=== PATIENT | male | born 1945 | race Caucasian/White ===

== ENCOUNTER 2018-03-10 11:24 | Emergency (ER) | payer OTHER ==
[2018-03-10] MEDS ORDERED: NS 1,000 ML IV ONE (11:32)
--- NOTE | 2018-03-10 11:32 | EDPHY ---
HPI/HX/ROS/PE/MDM Narrative: CHIEF COMPLAINT: Near syncope, dizzy HPI: The patient is a 72 y/o male with a history of diabetes arriving via EMS complaining of multiple falls for the past 2 days. Yesterday he had an episode of dizziness and weakness and suffered multiple skin tears. Today he had a near syncopal episode but was able to catch himself. He was on a walk, when his " feet didn't work" and he became dizzy. Due to this dizziness he thought he was going to fall. He became concerned about the dizziness and called 911. While en route to the emergency department he had normal vital signs including a normal BGL of 146. Denies headache, chest pain, shortness of breath, abdominal pain, numbness, paresthesias, fever. He has also recently transitioned from Type 2 Diabetes to Type 1 Diabetes. He started giving himself insulin injections 2 months ago. REVIEW OF SYSTEMS: Aside from elements discussed in the HPI, a comprehensive 10-point review of systems was reviewed and is negative. PMH: Diabetes Mellitus, blind in left eye SOCIAL HISTORY: Lives in [place], , retired PHYSICAL EXAM: General: Patient is alert, in no acute distress. ENT: Eyes are normal to inspection. ENT inspection normal. Neck: Normal inspection. Full range of motion. Respiratory: No respiratory distress. Breath sounds normal bilaterally. Cardiovascular: Regular rate and rhythm. Strong peripheral pulses. Normal cap refill. Abdomen: The abdomen is nontender to palpation. There are no peritoneal signs. There are normal bowel sounds. Back: Normal to inspection. No tenderness to palpation. Skin: Multiple skin tears on extremities. Normal color. No rash. Warm and dry. Extremities: Normal appearance. Full range of motion. Neuro: Oriented x3. Normal motor function. Normal sensory function. ED Course: 1137: EKG was ordered and interpreted by myself. Please see [employer] system for official reading. 1245: Reassessed patient and discussed laboratory and imaging findings. He is aware of an elevated calcium level and states that a physician at [facility] is following his calcium. I have ordered additional calcium labs which he will need to follow up with his PCP for. I have offered him admission which he has politely declined. I spoke with case management in regards to finding transport for this patient to return home. 1316: I spoke with case management who reports that this patient is homeless and has been evicted from [facility]. She will try to set up [facility] follow up for the patient. MDM: This patient presents with frequent falls that he is adamant represent dizziness r weakness rather than true syncopal events. He is at high risk for complication given co-morbidities and has a rising abnormal calcium level of unclear etiology. I recommended admission but he declines. Case management met with patient to help with resources. Patient told he would be welcome to return and will clearly need close outpatient follow-up at a minimum. - Data Points Imaging Results: Imaging Impressions Chest X-Ray 03/10/18 11:32 Impression: No acute pulmonary disease. Imaging: I viewed and interpreted images myself Laboratory Results: Laboratory Results 03/10/18 11:35 03/10/18 11:35 03/10/18 03/10/18 03/10/18 13:13 11:35 11:35 WBC RBC Hgb Hct MCV MCH MCHC RDW Plt Count MPV Neut % (Auto) Lymph % (Auto) Ste[place] % (Auto) Eos % (Auto) Baso % (Auto) Nucleat RBC Rel Count Absolute Neuts (auto) Absolute Lymphs (auto) Absolute Monos (auto) Absolute Eos (auto) Absolute Basos (auto) Absolute Nucleated RBC Immature Gran % Immature Gran # Sodium 143 mEq/L mEq/L (135-145) Potassium 4.5 mEq/L mEq/L (3.3-5.0) Chloride 109 mEq/L mEq/L (97-110) Carbon Dioxide 18 mEq/l L mEq/l (22-31) Anion Gap 16 mEq/L mEq/L (8-16) BUN 24 mg/dL H mg/dL (7-23) Creatinine 0.7 mg/dL mg/dL (0.7-1.3) Estimated GFR > 60 Glucose 152 mg/dL H mg/dL (70-100) Calcium 11.4 mg/dL H mg/dL (8.5-10.4) Ionized Calcium 1.33 MMOL/L H MMOL/L (1.12-1.30) Phosphorus 2.7 mg/dL mg/dL (2.5-4.5) Troponin I < 0.012 ng/mL ng/mL (0.000-0.034) PTH Intact 79.7 pg/mL H pg/mL (10.8-79.4) 03/10/18 11:35 WBC 9.16 10^3/uL 10^3/uL (3.80-9.50) RBC 4.94 10^6/uL 10^6/uL (4.40-6.38) Hgb 15.7 g/dL g/dL (13.7-17.5) Hct 44.1 % % (40.0-51.0) MCV 89.3 fL fL (81.5-99.8) MCH 31.8 pg pg (27.9-34.1) MCHC 35.6 g/dL g/dL (32.4-36.7) RDW 12.3 % % (11.5-15.2) Plt Count 171 10^3/uL 10^3/uL (150-400) MPV 11.5 fL fL (8.7-11.7) Neut % (Auto) 75.6 % H % (39.3-74.2) Lymph % (Auto) 16.3 % % (15.0-45.0) Stearns % (Auto) 7.2 % % (4.5-13.0) Eos % (Auto) 0.1 % L % (0.6-7.6) Baso % (Auto) 0.4 % % (0.3-1.7) Nucleat RBC Rel Count 0.0 % % (0.0-0.2) Absolute Neuts (auto) 6.92 10^3/uL H 10^3/uL (1.70-6.50) Absolute Lymphs (auto) 1.49 10^3/uL 10^3/uL (1.00-3.00) Absolute Monos (auto) 0.66 10^3/uL 10^3/uL (0.30-0.80) Absolute Eos (auto) 0.01 10^3/uL L 10^3/uL (0.03-0.40) Absolute Basos (auto) 0.04 10^3/uL 10^3/uL (0.02-0.10) Absolute Nucleated RBC 0.00 10^3/uL 10^3/uL (0-0.01) Immature Gran % 0.4 % % (0.0-1.1) Immature Gran # 0.04 10^3/uL 10^3/uL (0.00-0.10) Sodium Potassium Chloride Carbon Dioxide Anion Gap BUN Creatinine Estimated GFR Glucose Calcium Ionized Calcium Phosphorus Troponin I PTH Intact Medications Given: Discontinued Medications Sodium Chloride (Ns) 1,000 mls @ 0 mls/hr IV EDNOW ONE; Wide Open PRN Reason: Protocol Stop: 03/10/18 11:33 Last Admin: 03/10/18 11:48 Dose: 1,000 mls General Time Seen by Provider: 03/10/18 11:28 Initial Vital Signs: Initial Vital Signs Temperature (C) 36.7 C 03/10/18 11:24 Heart Rate 95 03/10/18 11:24 Respiratory Rate 20 03/10/18 11:24 Blood Pressure 125/88 H 03/10/18 11:24 O2 Sat (%) 96 03/10/18 11:24 O2 Delivery Mode Room Air Allergies/Adverse Reactions: No Known Allergies Allergy (Unverified 03/11/18 00:23) Home Medications: Medication Instructions Recorded Benazepril HCl 5 mg PO DAILY 03/11/18 Donepezil HCl 10 mg PO HS 03/11/18 Glimepiride [Amaryl 2 MG (*)] 2 mg PO DAILY 03/11/18 Lisinopril [Zestril 2.5 mg (*)] 2.5 mg PO DAILY 03/11/18 Metformin HCl [Metformin 1000 mg] 1,000 mg PO BIDMEAL 03/11/18 Pravastatin Sodium [Pravachol] 10 mg PO HS 03/11/18 Departure - Departure Disposition: Home, Routine, Self-Care Clinical Impression: Dizzy, Near syncope, Hypercalcemia Condition: Good Instructions: Near Syncope (ED), Lightheadedness (ED), Dizziness (ED), Hypercalcemia (ED) Additional Instructions: We have ordered additional calcium labs in regards to your hypercalcemia. You will need to follow up with your primary care provider regarding these labs. Follow up with your primary care provider within 72 hours without fail. Return to the emergency department immediately for headache, numbness, weakness , neck pain, inability to tolerate fluids by mouth or other worsening of condition. Referrals: Xiao Paniagua MD [Medical Doctor] - As per Instructions [facility],. [Clinic] - As per Instructions Report Scribed for: Chencho Carlos Report Scribed by: Louise Huitron Date of Report: 03/10/18 Time of Report: 12:01 Physician Review and Approval Statement: Portions of this note were transcribed by an ED scribe. I personally performed the history, physical exam, and medical decision making; and confirm the accuracy of the information in the transcribed note.
--- NOTE | 2018-03-10 11:39 | CPEKG ---
Heart Rate: 95 RR Interval: 632 P-R Interval: 156 QRSD Interval: 92 QT Interval: 348 QTC Interval: 438 P [place]: 63 QRS [place]: 79 T Wave [place]: 53 EKG Severity - NORMAL ECG - EKG Impression: SINUS RHYTHM Electronically Signed By: Van Mcgee 11-Mar-2018 07:22:47
[2018-03-10 11:46] LABS: PLATELET COUNT 171 10^3/uL (150-400)
[2018-03-10 12:29] VITALS: BP 125/87
--- NOTE | 2018-03-10 19:04 | ASDISCHSUM ---
Discharge Information Plan Status:Home with No Needs Medically Cleared to Leave: Discharge Date:03/10/2018 01:47 PM CM D/C Disposition:Home, Routine, Self-Care ADT D/C Disposition:Home, Routine, Self-Care Projected Discharge Date:03/10/2018 01:47 PM Transportation at D/C:None or Unknown Discharge Delay Reason: Follow-Up Date:03/10/2018 01:47 PM Discharge Slot: Final Diagnosis: Placement Information Patient Contact Information Contact Name:DEION Relationship:Licha Address: Work Phone: City: [facility] Phone: State/Zip Code: Email: Financial Information Financial Class:Medicare Primary Plan Desc:MEDICARE OUTPATIENT Primary Plan Number:[id number] Secondary Plan Desc: Secondary Plan Number: Assessment Information [facility] CM Progress Note CM Note CM Note Notes: Pt presented to the ED for near-syncope. Requested to assist patient w/returning home. Spoke with patient and he states he currently doesn't have a home but was staying with a lady friend who lives at [place] but it was only for one night and can't return there to stay overnight. Pt states he was evicted from [facility] but was unable to give specific/clear reason why but reports "they are all heathens over there." When asked where pt was planning on going after the ED, pt replied "I hadn't given it much thought." Pt was offered admission to the hospital for further workup but declined. Pt states he might have another friend who he could stay with but "rather not bother them." Pt informed about the Coordinated Entry process. Pt used to be seen by Dr. Paniagua at [facility] ([phone]). Offered to assist pt with getting a follow up appointment. Pt's last visit with Dr Paniagua was in 2014. This CM called and schedule pt an appt for Tuesday but unfortunately the patient left the ED while CM was on the phone. Pt told ED RN he "wanted to go eat and we couldn't make him stay." This CM was unable to communicate the appt day and time so it was canceled ANDRA was also unable to provide CE and other resource lists before pt left. CM available for further assistance. Date Signed: 03/10/2018 07:03 PM Electronically Signed By:Su Landeros RN Intervention Information
== END 2018-03-10 13:47 | disposition home or self-care (01) ==
LOC: EDUNIT#
DX: R42 Dizziness and giddiness (principal); R55 Syncope and collapse; E11.65 Type 2 diabetes mellitus with hyperglycemia; E86.9 Volume depletion, unspecified; Z79.84 Long term (current) use of oral hypoglycemic drugs

== ENCOUNTER 2018-03-11 00:19 | Inpatient (IN) | payer OTHER ==
[2018-03-11] MEDS ORDERED: NS 1,000 ML IV ONE ×2 (00:32→01:24)
--- NOTE | 2018-03-11 00:37 | CPEKG ---
Heart Rate: 95 RR Interval: 632 P-R Interval: 152 QRSD Interval: 96 QT Interval: 348 QTC Interval: 438 P [place]: 56 QRS [place]: 79 T Wave [place]: 46 EKG Severity - NORMAL ECG - EKG Impression: SINUS RHYTHM Electronically Signed By: Van Mcgee 11-Mar-2018 07:22:47
--- NOTE | 2018-03-11 00:38 | EDPHY ---
H & P Stated Complaint: diabetic, high BGL Time Seen by Provider: 03/11/18 00:33 HPI/ROS: HPI CHIEF COMPLAINT: High blood sugar, confused, walking around outside making disturbance HISTORY OF PRESENT ILLNESS: This patient is a 72-year-old male, presents emergency room by EMS after police made contact with him as he was walking around a neighborhood in [facility] making a disturbance and yelling. The Asked EMS to come and evaluate him and they found him to have a high blood sugar. They brought him here to the emergency room. The patient upon arrival also thinks that it is 2014. He does note that he is [facility]. He states that he takes insulin but he is unsure exactly how much she takes and does not remember the medication name. He reports to me that he has been in [place] for week he states that he lives in [place] and he is visiting a friend at [facility]. He reports that he is due to fly back to [place]. However he does not have a plane take it. On further examination review with him he seems to be confused and have some, cognitive decline versus underlying dementia which she denies. It is unclear to me why he is walking around at 1 o'clock in the morning around [place] causing disturbance with no place to live. He states that his son brought him here to [place] and his son is already back in [place]. Of note this patient was also seen here earlier in the day and left the ER. 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 Smokes tobacco daily. Family History: Noncontributory ROS REVIEW OF SYSTEMS: A comprehensive 10 point review of systems is otherwise negative aside from elements mentioned in the history of present illness. Exam Constitutional confused, triage nursing summary reviewed, vital signs reviewed , awake/alert. Eyes right eye appears to be prostatic with yellow purulent discharge, left eye intact HENT normal inspection, atraumatic, moist mucus membranes, no epistaxis, neck supple/ no meningismus, no raccoon eyes. Respiratory clear to auscultation bilaterally, normal breath sounds, no respiratory distress, no wheezing. Cardiovascular rate normal, regular rhythm, no murmur, no edema, distal pulses normal. Gastrointestinal soft, non-tender, no rebound, no guarding, normal bowel sounds, no distension, no pulsatile mass. Genitourinary no CVA tenderness. Musculoskeletal no midline vertebral tenderness, full range of motion, no calf swelling, no tenderness of extremities, no meningismus, good pulses, neurovascularly intact. Skin pink, warm, & dry, no rash, skin atraumatic. Neurologic alert or x2, moves all 4 extremities equally, motor intact, sensory intact, CN II-XII intact, normal cerebellar, normal vision, normal speech. Psychiatric normal mood/affect. Heme/Lymph/Immune no lymphadenopathy. Differential Diagnosis: Includes but is not limited to in a particular order hyperglycemia, electrolyte disturbance, dehydration, DKA, infection, dementia, sundowning, delirium, encephalopathy Medical Decision Making: Plan for this patient IV establishment blood draw, EKG , troponin, chest x-ray, CT scan head without contrast for confusion, rule out DKA, gentle IV fluids. Re-evaluation: I have great concern about this patient's safety 72 years old wandering around night in [place] it appears to have some kind of cognitive issue. He states he is from [place]. Patient will most likely need to be admitted with a case management consult for the patient's safety. EKG interpretation by me on record in [employer] system. Impression time of EKG 0036, this is sinus rhythm rate of [address] scan head without contrast negative for acute bleed or stroke. Patient's blood work reviewed. No evidence of DKA. He is hyperglycemia. He will be hydrated vigorously with IV fluids. Additionally patient need to be admitted to the hospital for case management to see and work with for his safety and disposition. Reason for admission, he is homeless, diabetic, does not know his insulin dose, does not know what insulin he takes comma is hyperglycemic, dehydrated, possible underlying dementia versus cognitive decline. Not safe for discharge. 0125: Patient resting comfortably no acute distress. Spoke with the hospitalist service they agree to admit. Case management to see. Reason for admission dehydration and hyperglycemia Source: Patient, EMS - Personal History Current Tetanus/Diphtheria Vaccine: Yes Current Tetanus Diphtheria and Acellular Pertussis (TDAP): Yes - Medical/Surgical History Hx Asthma: No Hx Chronic Respiratory Disease: No Hx Diabetes: Yes Hx Cardiac Disease: No Hx Renal Disease: No Hx Cirrhosis: No Hx Alcoholism: No Hx HIV/AIDS: No Hx Splenectomy or Spleen Trauma: No Other PMH: DM, hyperlipidemia/ blind in l eye,s/p fall - Social History Smoking Status: Current every day smoker Constitutional: Initial Vital Signs Temperature (C) 36.4 C 03/11/18 00:23 Heart Rate 108 H 03/11/18 00:23 Respiratory Rate 18 03/11/18 00:23 Blood Pressure 149/75 H 03/11/18 00:23 O2 Sat (%) 96 03/11/18 00:23 O2 Delivery Mode Room Air Allergies/Adverse Reactions: No Known Allergies Allergy (Unverified 03/11/18 00:23) Home Medications: Medication Instructions Recorded Benazepril HCl 5 mg PO DAILY 03/11/18 Donepezil HCl 10 mg PO 03/11/18 Glimepiride [Amaryl 2 MG (*)] 2 mg PO DAILY 03/11/18 Lisinopril [Zestril 2.5 mg (*)] 2.5 mg PO DAILY 03/11/18 Metformin HCl [Metformin 1000 mg] 1,000 mg PO BIDMEAL 03/11/18 Pravastatin Sodium [Pravachol] 10 mg PO 03/11/18 Medical Decision Making - Data Points Laboratory Results: Laboratory Results 03/11/18 00:15 03/11/18 00:15 Medications Given: Donepezil HCl (Aricept) 10 mg PO [facility] Stop: 09/07/18 20:59 Last Admin: 03/11/18 20:55 Dose: 10 mg Enoxaparin Sodium (Lovenox) 40 mg SC DAILY [facility] Stop: 09/07/18 08:59 Last Admin: 03/11/18 08:14 Dose: 40 mg Sodium Chloride (Ns) 1,000 mls @ 100 mls/hr IV CONT [facility] Stop: 03/12/18 01:44 Last Admin: 03/11/18 15:49 Dose: 1,000 mls Insulin Human Lispro (Humalog Lispro) 0 unit SC TIDMEAL [facility] PRN Reason: Protocol Stop: 09/07/18 07:59 Last Admin: 03/11/18 18:09 Dose: 6 unit Metformin HCl (Glucophage) 1,000 mg PO BIDMEAL [facility] Stop: 09/07/18 17:59 Last Admin: 03/11/18 18:08 Dose: 1,000 mg Pravastatin Sodium (Pravachol) 10 mg PO HS [facility] Stop: 09/07/18 20:59 Last Admin: 03/11/18 20:55 Dose: 10 mg Discontinued Medications Sodium Chloride (Ns) 1,000 mls @ 0 mls/hr IV EDNOW ONE; Wide Open PRN Reason: Protocol Stop: 03/11/18 00:33 Last Admin: 03/11/18 00:36 Dose: 1,000 mls Sodium Chloride (Ns) 1,000 mls @ 0 mls/hr IV ONCE ONE PRN Reason: Wide Open Stop: 03/11/18 01:25 Last Admin: 03/11/18 01:29 Dose: 1,000 mls Insulin Human Regular (Humulin R) 10 unit SC EDNOW ONE Stop: 03/11/18 01:24 Last Admin: 03/11/18 01:27 Dose: 10 units Pneumococcal 13-Valent Conj Vacc (Prevnar 13 Syringe) 0.5 ml IM .ONCE ONE Stop: 03/11/18 12:23 Last Admin: 03/11/18 12:34 Dose: 0.5 ml Departure - Departure Disposition: [facility] Acute Clinical Impression: Hyperglycemia, Dehydration Condition: Fair
[2018-03-11 00:52] LABS: PLATELET COUNT 175 10^3/uL (150-400)
[2018-03-11 01:12] LABS: INR 1.01 (0.83-1.16); PROTIME(PATIENT) 13.5 SEC (12.0-15.0)
[2018-03-11] MEDS ORDERED: INSULIN REGULAR HUMAN 100 UNIT/ML UNIT SC ONE (01:23)
[2018-03-11] MEDS ORDERED: ONDANSETRON DISINTEGRATING 4 MG TAB PO PRN (01:24)
[2018-03-11] MEDS ORDERED: ACETAMINOPHEN 325 MG TAB PO PRN (01:24)
[2018-03-11] MEDS ORDERED: ONDANSETRON 4 MG/2 ML VIAL IVP PRN (01:24)
[2018-03-11] MEDS ORDERED: D50W 25 GM/50 ML VIAL IVP PRN (02:51)
--- NOTE | 2018-03-11 03:09 | PDGENHP ---
History and Physical - Chief Complaint AMS - History of Present Illness 72 yo M w/ DM presents via AMS for odd behavior. Patient was reported to police by onlookers as he was reportedly acting oddly. Police asked for EMS to evaluate and they brought him to ED for hyperglycemia (300's). He tells me he was looking for his friend's house when he dropped his flashlight in [place]. He visited the ED earlier today complaining of near syncope and was discharged home. He is only A&Ox2 on my evaluation but appears fairly appropriate. He denies any ongoing symptoms. History Information - Allergies/Home Medication List Allergies/Adverse Reactions: No Known Allergies Allergy (Unverified 03/11/18 00:23) Home Medications: Metformin HCl 03/11/15 [Last Taken Unknown] Zocor 03/11/15 [Last Taken Unknown] BENAZEPRIL HCL 04/12/15 [Last Taken Unknown] Glimepiride 04/12/15 [Last Taken Unknown] Pravastatin Sodium 04/12/15 [Last Taken Unknown] Insulin Aspart 03/10/18 [Last Taken Unknown] I have personally reviewed and updated: family history, medical history - Past Medical History diabetes type 2 - Surgical History Additional surgical history: Denies - Family History Additional family history: Denies - Social History Smoking Status: Current every day smoker Review of Systems Review of Systems: ROS: 10pt was reviewed & negative except for what was stated in HPI & below Physical Exam Physical Exam: Temp Pulse Resp BP Pulse Ox 35.9 C L 77 16 119/72 96 03/11/18 02:36 03/11/18 02:36 03/11/18 02:36 03/11/18 02:36 03/11/18 02:36 Constitutional: no apparent distress, not in pain Eyes: anicteric sclera, other (R eye cloudy) Ears, Nose, Mouth, Throat: moist mucous membranes, no oral mucosal ulcers Cardiovascular: regular rate and rhythym, systolic murmur Respiratory: no respiratory distress, no rales or rhonchi Gastrointestinal: normoactive bowel sounds, soft, non-tender abdomen Skin: warm, normal color Musculoskeletal: full muscle strength, no muscle tenderness Neurologic: sensation intact bilaterally, other (A&Ox2), No weakness, No facial droop Psychiatric: interacting appropriately, not anxious Lab Data & Imaging Review 03/11/18 00:15 03/11/18 00:15 WBC 10.99 10^3/uL (3.80-9.50) H 03/11/18 00:15 RBC 4.95 10^6/uL (4.40-6.38) 03/11/18 00:15 Hgb 15.5 g/dL (13.7-17.5) 03/11/18 00:15 Hct 45.2 % (40.0-51.0) 03/11/18 00:15 MCV 91.3 fL (81.5-99.8) 03/11/18 00:15 MCH 31.3 pg (27.9-34.1) 03/11/18 00:15 MCHC 34.3 g/dL (32.4-36.7) 03/11/18 00:15 RDW 12.5 % (11.5-15.2) 03/11/18 00:15 Plt Count 175 10^3/uL (150-400) 03/11/18 00:15 MPV 12.0 fL (8.7-11.7) H 03/11/18 00:15 Neut % (Auto) 76.8 % (39.3-74.2) H 03/11/18 00:15 Lymph % (Auto) 13.6 % (15.0-45.0) L 03/11/18 00:15 [place] % (Auto) 8.5 % (4.5-13.0) 03/11/18 00:15 Eos % (Auto) 0.1 % (0.6-7.6) L 03/11/18 00:15 Baso % (Auto) 0.5 % (0.3-1.7) 03/11/18 00:15 Nucleat RBC Rel Count 0.0 % (0.0-0.2) 03/11/18 00:15 Absolute Neuts (auto) 8.45 10^3/uL (1.70-6.50) H 03/11/18 00:15 Absolute Lymphs (auto) 1.50 10^3/uL (1.00-3.00) 03/11/18 00:15 Absolute Monos (auto) 0.93 10^3/uL (0.30-0.80) H 03/11/18 00:15 Absolute Eos (auto) 0.01 10^3/uL (0.03-0.40) L 03/11/18 00:15 Absolute Basos (auto) 0.05 10^3/uL (0.02-0.10) 03/11/18 00:15 Absolute Nucleated RBC 0.00 10^3/uL (0-0.01) 03/11/18 00:15 Immature Gran % 0.5 % (0.0-1.1) 03/11/18 00:15 Immature Gran # 0.05 10^3/uL (0.00-0.10) 03/11/18 00:15 PT 13.5 SEC (12.0-15.0) 03/11/18 00:15 INR 1.01 (0.83-1.16) 03/11/18 00:15 APTT 27.2 SEC (23.0-38.0) 03/11/18 00:15 Sodium 142 mEq/L (135-145) 03/11/18 00:15 Potassium 4.8 mEq/L (3.3-5.0) 03/11/18 00:15 Chloride 103 mEq/L (97-110) 03/11/18 00:15 Carbon Dioxide 22 mEq/l (22-31) 03/11/18 00:15 Anion Gap 17 mEq/L (8-16) H 03/11/18 00:15 BUN 27 mg/dL (7-23) H 03/11/18 00:15 Creatinine 1.0 mg/dL (0.7-1.3) 03/11/18 00:15 Estimated GFR > 60 03/11/18 00:15 Glucose 363 mg/dL (70-100) H 03/11/18 00:15 Calcium 11.6 mg/dL (8.5-10.4) H 03/11/18 00:15 Phosphorus 3.6 mg/dL (2.5-4.5) 03/11/18 00:15 Total Bilirubin 2.6 mg/dL (0.1-1.4) H 03/11/18 00:15 Conjugated Bilirubin 0.7 mg/dL (0.0-0.5) H 03/11/18 00:15 Unconjugated Bilirubin 1.9 mg/dL (0.0-1.1) H 03/11/18 00:15 AST 43 IU/L (17-59) 03/11/18 00:15 ALT 37 IU/L (21-72) 03/11/18 00:15 Alkaline Phosphatase 85 IU/L (38-126) 03/11/18 00:15 Total Protein 7.3 g/dL (6.3-8.2) 03/11/18 00:15 Albumin 4.6 g/dL (3.5-5.0) 03/11/18 00:15 Lipase 41 IU/L (23-300) 03/11/18 00:15 Urine Color YELLOW 03/11/18 00:35 Urine Appearance CLEAR 03/11/18 00:35 Urine pH 5.0 (5.0-7.5) 03/11/18 00:35 Ur Specific [place] 1.029 (1.002-1.030) 03/11/18 00:35 Urine Protein NEGATIVE (NEGATIVE) 03/11/18 00:35 Urine Ketones NEGATIVE (NEGATIVE) 03/11/18 00:35 Urine Blood NEGATIVE (NEGATIVE) 03/11/18 00:35 Urine Nitrate NEGATIVE (NEGATIVE) 03/11/18 00:35 Urine Bilirubin NEGATIVE (NEGATIVE) 03/11/18 00:35 Urine Urobilinogen NEGATIVE EU (0.2-1.0) 03/11/18 00:35 Ur Leukocyte Esterase NEGATIVE (NEGATIVE) 03/11/18 00:35 Urine RBC NONE SEEN /hpf (0-3) 03/11/18 00:35 Urine WBC 1-3 /hpf (0-3) 03/11/18 00:35 Ur Epithelial Cells TRACE /lpf (NONE-1+) 03/11/18 00:35 Urine Mucus TRACE /lpf (NONE-1+) 03/11/18 00:35 Urine Glucose 3+ (NEGATIVE) H 03/11/18 00:35 Urine Opiates Screen NEGATIVE (NEGATIVE) 03/11/18 00:35 Urine Barbiturates NEGATIVE (NEGATIVE) 03/11/18 00:35 Ur Phencyclidine Scrn NEGATIVE (NEGATIVE) 03/11/18 00:35 Ur Amphetamine Screen NEGATIVE (NEGATIVE) 03/11/18 00:35 U Benzodiazepines Scrn NEGATIVE (NEGATIVE) 03/11/18 00:35 Urine Cocaine Screen NEGATIVE (NEGATIVE) 03/11/18 00:35 U Marijuana (THC) Screen NEGATIVE (NEGATIVE) 03/11/18 00:35 Ethyl Alcohol < 10 mg/dL (0-10) 03/11/18 00:15 Imaging Review: CTH: Findings: Low attenuation is noted in the white matter bilaterally, likely due to age-related small vessel ischemic changes. Otherwise, attenuation of the brain parenchyma appears normal, with no evidence for hemorrhage, mass, or midline shift. The sulci and ventricles are prominent c/w atrophy. The visualized portions of the paranasal sinuses, mastoids and calvarium appear unremarkable. Summary: Atrophy and small vessel dz ;Neg for mass or bleed Called to ER @ 0110 hrs Visualized and Interpreted Chest x-ray results: Yes Chest X-Ray results: no infiltrate Visualized and Interpreted EKG results: Yes EKG Interpretation: Positive for: normal sinsus rhythm Assessment & Plan Assessment: 72 yo M w/ DM presents with mild AMS and hyperglycemia. Plan: 1. AMS - Unclear if mild cognitive deficits patient is displaying are baseline or acute since we do not have prior interactions with him. He is A&Ox2 currently and believes it is 2013. He denies any acute symptoms. It is possible hyperglycemia and mild hypercalcemia are playing a role in his confusion. UA and CXR are both negative for signs of infection. CTH with atrophy but no acute changes. - Admit for observation - PT/OT/CM consults - IV hydration and treatment of hyperglycemia, monitor for improvement 2. DM - He is unclear of his usual medication regimen at this time. BG >350 on admission. - S/p 10 units regular insulin in ED - Will continue standard SSI for now; [facility] BG checks 3. Hypercalcemia - He states this is chronic and being followed as an outpatient. - IVF, monitor Diet - Regular Code - Full Ppx - LMWH Dispo - Admit under observation status
[2018-03-11 05:33] LABS: PLATELET COUNT 189 10^3/uL (150-400)
[2018-03-11] MEDS: INSULIN LISPRO 100 UNIT/ML SC SCH ×3 (07:56→18:09)
[2018-03-11] MEDS: ENOXAPARIN 40 MG/0.4 ML SYR SC SCH (08:14)
[2018-03-11] MEDS ORDERED: PNEUMOC 13-VAL CONJ-DIP CRM/PF 0.5 ML SYR IM ONE (12:22)
--- NOTE | 2018-03-11 15:38 | HOSPPROG ---
Hospitalist Progress Note Assessment/Plan: #Acute encephalopathy -unclear etiology. Afebrile. Negative UA, CXR. U/S with stones, no RUQ pain. Negative tox screen -may be baseline. Have left VM with son to get more background info since does take Aricept -cognitive evaluation ordered -chronically elevated calcium #Mild anion gap acidosis #Hyperbilirubinemia: stones U/S, normal CBD. No signs cholecystitis #Leukocytosis: afebrile. Denies infectious sxs #Mild hypercalcemia: since 2013 per my review of records. PTH elevated minimally. Check 24hr urine calcium, phos, Vit D. Cont IVFs #Diet: regular #Disp: cont admission for 24 hr urine, glucose control Subjective: denies cough, N/V/D. No abd pain Objective: Vital Signs Temp Pulse Resp BP Pulse Ox 36.8 C 66 16 111/69 95 03/11/18 15:27 03/11/18 15:27 03/11/18 15:27 03/11/18 15:27 03/11/18 15:27 Laboratory Results 03/11/18 04:42 03/11/18 04:42 03/10/18 03/11/18 03/12/18 05:59 05:59 05:59 Intake Total 0 Balance 0 PT 13.5 SEC (12.0-15.0) 03/11/18 00:15 INR 1.01 (0.83-1.16) 03/11/18 00:15 - Time Spent With Patient Time Spent with Patient: greater than 35 minutes Time Spent with Patient: Greater than 35 minutes spent on this patients care, greater than 50% of time spent counseling, educating, and coordinating care regarding the above mentioned plan. - Physical Exam Constitutional: no apparent distress Eyes: PERRL Ears, Nose, Mouth, Throat: moist mucous membranes Cardiovascular: regular rate and rhythym Respiratory: no respiratory distress Gastrointestinal: normoactive bowel sounds, soft, non-tender abdomen, No tenderness Genitourinary: no bladder fullness Skin: warm Musculoskeletal: full muscle strength Neurologic: CN II-XII Intact ICD10 Worksheet Patient Problems: Problems Problem Status Onset Dehydration Acute Hyperglycemia Acute
[2018-03-11] MEDS ORDERED: NS 1,000 ML IV SCH (15:45)
[2018-03-11] MEDS: metFORMIN HCL 500 MG TAB PO SCH (18:08)
--- NOTE | 2018-03-11 18:48 | ASMTCMCOM ---
CM Note CM Note Notes: Chart reviewed. Pt admitted for altered mental status, hyperglycemia (300's), dehydration. Per MD notes, [place] [employer] was called by onlookers because pt was acting strangely. EMS was called and pt was transported to the hospital. Pt history included DM. Pt is also a current daily smoker. Pt's address is listed as [facility]. Call placed to [facility] . Per staff, "Driss hasn't been a resident there for quite some time." Current address unknown. Dr. Peterson attempted to reach pt's son for additional information; awaiting call back. Pt's discharge needs remain unclear at this time. PT/OT evals pending. CM will continue to follow. Current discharge plan: To be determined Date Signed: 03/11/2018 06:47 PM Electronically Signed By:Daly Mendiola RN
[2018-03-11] MEDS: DONEPEZIL HCL 5 MG TAB PO SCH (20:55)
[2018-03-11] MEDS: PRAVASTATIN SODIUM 10 MG TAB PO SCH (20:55)
[2018-03-12] MEDS: INSULIN LISPRO 100 UNIT/ML SC SCH ×3 (07:52→17:14)
[2018-03-12] MEDS: metFORMIN HCL 500 MG TAB PO SCH ×2 (07:54→17:08)
[2018-03-12] MEDS: ENOXAPARIN 40 MG/0.4 ML SYR SC SCH (08:51)
[2018-03-12] MEDS ORDERED: GLIMEPIRIDE 2 MG TAB PO SCH (09:00)
--- NOTE | 2018-03-12 09:25 | HOSPPROG ---
Hospitalist Progress Note Assessment/Plan: #Acute encephalopathy, suspect chronic dementia with cognitive eval . -Reversible causes negative including: UA, CXR. U/S with stones, no RUQ pain. Negative tox screen, CTH. Afebrile. -B12 mildly low. Confirmation testing stated below -he does not have medical decisional capacity. When I questioned him, he could not tell me how he got in hosp; he had been found yelling and wandering and -difficult b/c patient lives with son in [facility]. CM and myself spoke with Dimitri (son). At this point, he says his father can go. I am not comfortable with discharging him alone. I explained this to patient. He tried to leave floor, I called security. -ANDRA obtained further info: Dimitri went [place] and stayed with friend Jaki , who does does not have medical capacity either. Her son has placed restraining order again Dimitri and she is not allowed to leave [place]. I spoke with her on phone and she was not making sense and angered when told he has dementia. She is not a safe option for med proxy -Spoke with Pepper who is listed as next of kin. She has known him 30yrs and says he was in [facility] before, became violent and that reason went to [place] with son. She lives in [place] -placed on medical detainer since he does not have medical decisional capacity. He is not safe to be discharged alone. It would place him at risk for subsequent harm. Cannot leave. PRN Haldol. Restraints if needed. Ethics consult #Mild anion gap acidosis #Mild B12 deficiency: confirm with folate, reticulocyte, MMA, homocysteine levels. Supplementing #Hyperbilirubinemia: stones U/S, normal CBD. No signs cholecystitis #Leukocytosis: afebrile. Denies infectious sxs #Mild hypercalcemia: since 2013 per my review of records. PTH elevated minimally. Check 24hr urine calcium, phos, Vit D. Cont IVFs #Diet: regular #Disp: cont admission for 24 hr urine, glucose control Time spent on visit 120 min speaking with son, ANDRA, friend Pepper Subjective: "I want to go leave here with Jaki" Objective: Vital Signs Temp Pulse Resp BP Pulse Ox 36.6 C 61 16 120/71 100 03/12/18 07:11 03/12/18 07:11 03/12/18 07:11 03/12/18 07:11 03/12/18 07:11 Laboratory Results 03/12/18 04:25 03/12/18 04:25 03/11/18 03/12/18 03/13/18 05:59 05:59 05:59 Intake Total 0 1404 250 Output Total 400 375 Balance 0 1004 -125 PT 13.5 SEC (12.0-15.0) 03/11/18 00:15 INR 1.01 (0.83-1.16) 03/11/18 00:15 - Time Spent With Patient Time Spent with Patient: greater than 35 minutes Time Spent with Patient: Greater than 35 minutes spent on this patients care, greater than 50% of time spent counseling, educating, and coordinating care regarding the above mentioned plan. ICD10 Worksheet Patient Problems: Problems Problem Status Onset Dehydration Acute Hyperglycemia Acute
[2018-03-12] MEDS: CYANO/VITAMIN B12 100 MCG TAB PO SCH (09:41)
[2018-03-12] MEDS ORDERED: HALOPERIDOL LACT 5 MG/ML INJ IVP PRN ×2 (13:44→14:41)
--- NOTE | 2018-03-12 14:05 | PDMN ---
Medical Necessity Medical necessity: C/M review: est. > 2 MN LOS for eval and TX if acute encephalopathy, suspect chronic dementia with cognitive eval of , patient argumentative, negative UA, CXR, US with stones, no RUQ pain, negative tox screen, may be baseline, patient does nove decisional capacity, patient medically unsafe for discharge patient tried to leave the floor, if needed patient will be placed on medical detainer as he cannot safely make medical decisions, mild anion gap acidosis, hyperbilirubinemia, leukocytosis, patient afebrile, mild hypercalcemia, requiring IV fluids 03/11/2018 to 03/12/2018 AM, planned 24 hour urine collection for calcium eval, glucose control with sliding scale insulin, oral metformin, glucose monitoring, 03/12/2018 oral Haldol as needed was ordered, comorbid history 03/11/2018 patient was reported to police by onlookers as patient was acting oddly - patient found yelling and wandering on [facility], EMS called, as patient had hyperglycemia, patient brought to [facility] ED just prior to this admission, difficult as patient lives with his son in [place], 03/12/2018 MD spoke to patient's son, patient's son stated patient could go, however patient is alone in [place], and does not gave medical decision making capacity, patient medically unsafe for discharge per Hospitalist progress note.
[2018-03-12] MEDS: NICOTINE 14 MG/24 HR PATCH TD SCH (15:52)
--- NOTE | 2018-03-12 18:38 | ASMTCMCOM ---
CM Note CM Note Notes: Called to unit to assist with pt by Dr. Peterson. Pt with dementia, confusion. Per Dr. Peterson, assistance needed in developing a safe discharge plan. Call placed to pt's son Brenton . Spoke at length with son. Per Brenton, the pt has been living in [place] with Brenton for the past two years. The pt was supposed to be visiting [place] temporarily and was to return back to [place] on March 23. Per Brenton, the pt "has always had a love of the [place] area and wishes to move back to [place]." The pt came to [place] to see if he could find an apartment and to see friends. Brenton states he has been caring for his dad for the past two years and would like CM assistance in placing his dad in an Assisted Living facility in [place]. Explained to Brenton the difficulties and limitations in helping with permanent housing. Asked son if he could fly to [place] to assist with medical decision making and placement - son refused, stating he could not take time off of work and didn't really know how to help. Explained pt's cognitive concerns, son continued to refuse - stating he "understood if the hospital had to discharge his dad to the streets, it would okay." CM offered to assist in getting pt from hospital to airport for a flight back to [place], son declined stating "he will just fly right back to [place]." Son refused to adjust travel dates on pt's airline ticket. Met with pt. Discussed situation. Pt clearly confused stating he "walked to the hospital." Pt claims he has a girlfriend named Jaki; phone number obtained. Call placed to Jaki. Per Jaki, she lives in an apartment at [address]. She and the pt are supposed to in three days. Jaki states her parents are coming in to town tomorrow to attend the wedding. CM asked Jaki to come to the hospital to assist with the pt. Jaki stated she has "no way to get to the hospital, but will come on Tuesday03/13/18 when her parents arrive." Update provided to Dr. Peterson and JI Ronquillo. Call placed to [facility] CM Certified Hyperbaric Technician. Pt placed on medical detainer due to cognitive incompetency. Call placed to [facility] - spoke with Kirby. Per Kirby, Jaki is a resident at [facility] and is cognitively incompetent as well. Per Kirby, the pt arrived at [facility] from [place] on 03/09/18 and was granted permission to spend one night at the facility with Jaki. On Tuesday03/10/18, the pt attempted to take Jaki out of the facility. Jaki's son and medical decision maker was contacted. Jaki's son requested [facility] call [place] police should pt return to [facility] to see Jaki. Update provided to Jess Dent, RN, Teri, SALO. Attempted to reach Brenton (pt's son) again for medical proxy. LVM, awaiting call back. Ethics consult requested. Discharge plan remains unclear. CM will continue to follow. Current Discharge Plan: To be determined Date Signed: 03/12/2018 06:37 PM Electronically Signed By:Daly Mendiola RN
[2018-03-12] MEDS ORDERED: OLANZapine DISINTEGR 5 MG TAB PO SCH (21:00)
[2018-03-12] MEDS: DONEPEZIL HCL 5 MG TAB PO SCH (22:22)
[2018-03-12] MEDS: PRAVASTATIN SODIUM 10 MG TAB PO SCH (22:22)
[2018-03-13] MEDS: ENOXAPARIN 40 MG/0.4 ML SYR SC SCH (09:58)
[2018-03-13] MEDS: metFORMIN HCL 500 MG TAB PO SCH ×2 (09:59→17:36)
[2018-03-13] MEDS: NICOTINE 14 MG/24 HR PATCH TD SCH (09:59)
[2018-03-13] MEDS: CYANO/VITAMIN B12 100 MCG TAB PO SCH (09:59)
[2018-03-13] MEDS: INSULIN LISPRO 100 UNIT/ML SC SCH ×3 (09:59→17:34)
[2018-03-13] MEDS ORDERED: OLANZapine DISINTEGR 5 MG TAB PO PRN (11:59)
--- NOTE | 2018-03-13 12:25 | HOSPPROG ---
Hospitalist Progress Note Assessment/Plan: #Acute encephalopathy: suspect chronic dementia with cognitive eval . -Reversible causes negative including: UA, CXR. U/S with stones, no RUQ pain. Negative tox screen, CTH. Afebrile. -B12 mildly low; confirmatory tests pending -I do not feel he has medical decisional capacity. When I questioned him, he could not tell me how he got in hosp; he had been found yelling and wandering/ yelling -please see my note 03/12 for full details. -On medical detainer. Daughter, Olamide Tong, has agreed to be med proxy to assist with placement -agitation improved with Zydis last night #Mild anion gap acidosis: resolved with IVFs #Mild B12 deficiency: confirm with folate, reticulocyte, MMA, homocysteine levels. Supplementing #Hyperbilirubinemia: stones U/S, normal CBD. No signs cholecystitis #Leukocytosis: afebrile. Denies infectious sxs #Mild hypercalcemia: since 2013 per my review of records. PTH elevated minimally. 24 hr urine Ca <200, normal phos. Vit D pending #Diet: regular #Disp: cont admission for 24 hr urine, glucose control Time spent on visit: 35 min speaking with patient, CM Subjective: calmer this morning. Was not argumentive during my interview Objective: Vital Signs Temp Pulse Resp BP Pulse Ox 37.0 C 73 12 123/73 H 96 03/13/18 09:17 03/13/18 09:17 03/13/18 09:17 03/13/18 09:17 03/13/18 09:17 Laboratory Results 03/12/18 04:25 03/13/18 05:00 03/12/18 03/13/18 03/14/18 05:59 05:59 05:59 Intake Total 1404 1400 Output Total 400 675 Balance 1004 725 PT 13.5 SEC (12.0-15.0) 03/11/18 00:15 INR 1.01 (0.83-1.16) 03/11/18 00:15 - Time Spent With Patient Time Spent with Patient: greater than 35 minutes Time Spent with Patient: Greater than 35 minutes spent on this patients care, greater than 50% of time spent counseling, educating, and coordinating care regarding the above mentioned plan. - Physical Exam Constitutional: no apparent distress, other (calm sitting in chair) Eyes: PERRL Ears, Nose, Mouth, Throat: moist mucous membranes Cardiovascular: regular rate and rhythym, no murmur, rub, or gallop Respiratory: no respiratory distress, no rales or rhonchi Gastrointestinal: normoactive bowel sounds, soft, non-tender abdomen, No tenderness Genitourinary: no bladder fullness Skin: warm Musculoskeletal: full muscle strength Neurologic: CN II-XII Intact Psychiatric: poor insight, poor judgement, poor memory ICD10 Worksheet Patient Problems: Problems Problem Status Onset Dehydration Acute Hyperglycemia Acute
--- NOTE | 2018-03-13 15:30 | ASMTCMCOM ---
CM Note CM Note Notes: CM spoke with pt's friend Robbie Bella [phone] who has known him for many years. He was helpful in getting pt's daughter Arely Tong's phone # [phone]. She lives in [place]. Spoke with Arely who is agreeable to being pt's medical proxy. Also spoke with pt's son Brenton Cummings who is in agreement with this. Even though pt has lived with Brenton for the past 2 1/2 years, Brenton felt Arely was the better choice for proxy. Hospitalist informed and ethics consult was canceled. Proxy Decision Maker: The interested persons (Brenton Cummings and Arely Tong) collectively agreed that Arely Tong knows the patient and is more likely to be informed of the patient's wishes regarding treatment and should act as the patient's healthcare proxy. Arely Tong can be contacted by phone at [phone]. Persons contacted were pt's son Brenton Cummings [phone] and Arely Tong. Arely is arranging to come to [place] next week to assist in making arrangements for pt - she was supposed to be in [place] for a wedding 03/28 but is moving up the date. PT/OT evals were requested for a possible SNF d/c for a short term rehab stay although pt may not have a skillable need. 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 Pt earns approx $1931 a month, per son. He has some savings. Pt's son also mentioned pt has a friend in [place] (Alberto Schroeder) who lives near the [facility]. If pt is able to d/c independently, perhaps he could stay there until Arely arrives. Alberto is disabled living with his daughter so not sure how much assistance he could provide. This d/c plan is not likely to be in the pt's best interests. Pt continues on medical detainer until a suitable d/c plan is made. Date Signed: 03/13/2018 03:29 PM Electronically Signed By:TC Hodgson
[2018-03-13] MEDS: DONEPEZIL HCL 5 MG TAB PO SCH (20:38)
[2018-03-13] MEDS: PRAVASTATIN SODIUM 10 MG TAB PO SCH (20:38)
[2018-03-14] MEDS: ENOXAPARIN 40 MG/0.4 ML SYR SC SCH (07:33)
[2018-03-14] MEDS: NICOTINE 14 MG/24 HR PATCH TD SCH (07:34)
[2018-03-14] MEDS: INSULIN LISPRO 100 UNIT/ML SC SCH ×3 (08:16→19:31)
[2018-03-14] MEDS: CYANO/VITAMIN B12 100 MCG TAB PO SCH (08:17)
[2018-03-14] MEDS: metFORMIN HCL 500 MG TAB PO SCH ×2 (08:17→19:31)
--- NOTE | 2018-03-14 14:30 | ASMTCMCOM ---
CM Note CM Note Notes: Spoke with pt dghtr Arely ([phone]), from [place] she is trying to make phone calls to find a placement for pt at d/c. Arely states she is trying to find a flight to [place] within the next 5 days. Arely reports it is not an option for pt to d/c with Arely and reside with her and her in [place]. Arely states there are no friends in [place] capable of caring for pt or who pt can live with. The friend Alberto in [place] is not a good option as he not mentally all there and resides with relatives. Arely reports friend Robbie likely not a d/c option. To Renetta knowledge pt receives $1900/month in social security. Referral made to [employer]: Angelique [phone] spoke with pt son Dimitri and Arely. Angelique reports pt is minimally over the assets for Medicaid, he would need to spend down a little to be able to go to a Medicaid [place]. After assessing pt finances and talking to family Angelique advice is SNF d/c and Medicaid screening. Angelique can follow pt and continue to work with family at SNF, CM to update her on which SNF placement pt d/c to. [employer] contacted to assess pt for Medicaid/LTC Medicaid. Pt may qualify for SNF; several SNF referrals sent. Pt has no secondary insurance. CM to follow. Date Signed: 03/14/2018 02:29 PM Electronically Signed By:TC Gooden
--- NOTE | 2018-03-14 15:43 | ASMTCMCOM ---
CM Note CM Note Notes: Arely reports she will fly in to [place] Tuesday. Arely requests CM be available for assistance with the conversation about SNF placement if pt is still here Tuesday because pt will get very angry. [facility], [facility] and [facility] SNFs need to complete on-site assessments. Referrals pending for [facility], [facility], [facility], [facility] and [facility]. Pt girlfriend Jaki resides at , CM will have to discuss with [facility] if it would be possible or even a good idea for them to be there together at since says Jaki's son/decision maker wants [employer] called if pt goes to again. CM will continue to follow. Date Signed: 03/14/2018 03:42 PM Electronically Signed By:TC Gooden
--- NOTE | 2018-03-14 16:39 | HOSPPROG ---
Hospitalist Progress Note Assessment/Plan: #Acute encephalopathy: suspect chronic dementia with cognitive eval . - Reversible causes negative including: UA, CXR. U/S with stones, no RUQ pain. Negative tox screen, CTH. Afebrile. -B12 mildly low; confirmatory tests pending- oxygen saturations 93% on RA -does not have medical decisional capacity -On medical detainer. Daughter, Olamide Tong, has agreed to be med proxy to assist with placement -agitation improved with Zydis- continue - cont working on placment # Mild anion gap acidosis: resolved with IVFs # Mild B12 deficiency: confirm with folate, reticulocyte, MMA, homocysteine levels. Supplementing # Hyperbilirubinemia: stones U/S, normal CBD. No signs cholecystitis # Leukocytosis: afebrile. Denies infectious sxs WBC 10-> 8 #Mild hypercalcemia: since 2013 per my review of records. PTH elevated minimally. 24 hr urine Ca <200, normal phos. Vit D pending #Diet: regular #Disp: cont admission for 24 hr urine, glucose control I have discussed case with RN - pt remains stable today Subjective: denies pain Objective: Vital Signs Temp Pulse Resp BP Pulse Ox 36.9 C 87 16 110/78 94 03/14/18 16:26 03/14/18 16:26 03/14/18 16:26 03/14/18 16:26 03/14/18 16:26 Laboratory Results 03/12/18 04:25 03/13/18 05:00 03/13/18 03/14/18 03/15/18 05:59 05:59 05:59 Intake Total 1400 500 Output Total 675 Balance 725 500 PT 13.5 SEC (12.0-15.0) 03/11/18 00:15 INR 1.01 (0.83-1.16) 03/11/18 00:15 - Physical Exam Constitutional: no apparent distress Eyes: anicteric sclera Ears, Nose, Mouth, Throat: moist mucous membranes Cardiovascular: regular rate and rhythym Respiratory: no respiratory distress Gastrointestinal: normoactive bowel sounds Genitourinary: no bladder fullness Skin: warm Musculoskeletal: No asymmetric calves Neurologic: No AAOx3 Psychiatric: poor judgement, poor memory Lymph, Heme, Immunologic: no cervical LAD ICD10 Worksheet Patient Problems: Problems Problem Status Onset Dehydration Acute Hyperglycemia Acute
[2018-03-14] MEDS: DONEPEZIL HCL 5 MG TAB PO SCH (22:26)
[2018-03-14] MEDS: PRAVASTATIN SODIUM 10 MG TAB PO SCH (22:26)
[2018-03-15 07:35] VITALS: BP 117/70
[2018-03-15] MEDS: metFORMIN HCL 500 MG TAB PO SCH (08:03)
[2018-03-15] MEDS: CYANO/VITAMIN B12 100 MCG TAB PO SCH (08:03)
[2018-03-15] MEDS: ENOXAPARIN 40 MG/0.4 ML SYR SC SCH (08:03)
[2018-03-15] MEDS: NICOTINE 14 MG/24 HR PATCH TD SCH (08:03)
[2018-03-15] MEDS: INSULIN LISPRO 100 UNIT/ML SC SCH ×2 (08:04→11:52)
--- NOTE | 2018-03-15 13:46 | PDIAF ---
- Diagnosis Diagnosis: encephalolpathy Code Status: Full Code - Medication Management Discharge Medications: Medications to Continue on Transfer Donepezil HCl 10 mg PO HS 03/11/18 [Last Taken Unknown] Metformin HCl [Metformin 1000 mg] 1,000 mg PO BIDMEAL 03/11/18 [Last Taken Unknown] Pravastatin Sodium [Pravachol] 10 mg PO HS 03/11/18 [Last Taken Unknown] Acetaminophen [Tylenol 325mg (*)] 650 mg PO Q4HRS PRN tab 03/15/18 [Last Taken Unknown] Cyanocobalamin [Vitamin B12 (*)] 100 mcg PO DAILY tab 03/15/18 [Last Taken Unknown] OLANZapine DISINTEGR [ZyPREXA ZYDIS (*)] 5 mg PO HS PRN tab 03/15/18 [Last Taken Unknown] Discharge Medications: Refer to the Discharge Home Medication list for PRN reason. - Orders Services needed: Registered Nurse, Physical Therapy, Occupational Therapy Diet Recommendation: no restrictions on diet Diet Texture: Regular Texture Diet - Follow Up Care Current Providers and Referrals: Patient,NotPresent [Unknown] - As per Instructions
--- NOTE | 2018-03-15 14:04 | ASMTCMCOM ---
CM Note CM Note Notes: Beatrice from [facility] on site today to assess patient, able to accept. Spoke with patient's daughter, Arely, via phone re: discharge plan of care. She prefers that patient d/c to [facility] in [place]. All orders have been sent to [facility] to transport today at 1500. MD feels patient is medically stable for discharge today, daughter arriving on Tuesday but is okay with patient transferring today. D/W RN who will call report. Plan: D/C to [facility] today. Date Signed: 03/15/2018 02:04 PM Electronically Signed By:Renuka Nugent RN
--- NOTE | 2018-03-15 14:07 | ASMTLACE ---
LACE Length of stay for Answers: 4-6 days current admission Acuity / Level of Answers: Yes Care: Did the patient have an inpatient admission? Comorbidities - select Answers: Diabetes (uncontrolled or all that apply controlled) Other Notes: Current every day smoke r # of Emergency department Answers: 1-2 visits in the last 6 months Score: 10 Date Signed: 03/15/2018 02:07 PM Electronically Signed By:Renuka Nugent RN
--- NOTE | 2018-03-15 16:51 | ASDISCHSUM ---
Discharge Information Plan Status:SNF Medically Cleared to Leave: Discharge Date:03/15/2018 03:24 PM CM D/C Disposition:[facility]sp Facility ADT D/C Disposition:[facility]sp Facility Projected Discharge Date:03/15/2018 11:00 AM Transportation at D/C:Wheelchair Van Discharge Delay Reason: Follow-Up Date:03/15/2018 11:00 AM Discharge Slot: Final Diagnosis: Placement Information Referral Type:*Halfway/SNF Referral ID:[id number] Provider Name:[facility] Address 1:[address] Address 2: City:[place] Selection Factors: State:[place] Patient Contact Information Contact Name:DEION Relationship:Friend Address: Work Phone: City: [facility] Phone: [facility] Code: Email: Financial Information Financial Class:Medicare Primary Plan Desc:MEDICARE INPATIENT Primary Plan Number:[id number] Secondary Plan Desc: Secondary Plan Number: Assessment Information LACE LACE Length of stay for Answers: 4-6 days current admission Acuity / Level of Answers: Yes Care: Did the patient have an inpatient admission? Comorbidities - select Answers: Diabetes (uncontrolled or all that apply controlled) Other Notes: Current every day smoke r # of Emergency department Answers: 1-2 visits in the last 6 months Score: 10 Date Signed: 03/15/2018 02:07 PM Electronically Signed By:Renuka Nugent RN [facility] CM Progress Note CM Note CM Note Notes: Chart reviewed. Pt admitted for altered mental status, hyperglycemia (300's), dehydration. Per MD notes, [place] PD was called by onlookers because pt was acting strangely. EMS was called and pt was transported to the hospital. Pt history included DM. Pt is also a current daily smoker. Pt's address is listed as [facility]. Call placed to [facility] . Per staff, "Driss hasn't been a resident there for quite some time." Current address unknown. Dr. Peterson attempted to reach pt's son for additional information; awaiting call back. Pt's discharge needs remain unclear at this time. PT/OT evals pending. CM will continue to follow. Current discharge plan: To be determined Date Signed: 03/11/2018 06:47 PM Electronically Signed By:Daly Mendiola RN [facility] CM Progress Note CM Note CM Note Notes: Called to unit to assist with pt by Dr. Peterson. Pt with dementia, confusion. Per Dr. Peterson, assistance needed in developing a safe discharge plan. Call placed to pt's son Brenton . Spoke at length with son. Per Brenton, the pt has been living in [place] with Brenton for the past two years. The pt was supposed to be visiting [place] temporarily and was to return back to [place] on March 23. Per Brenton, the pt "has always had a love of the [place] area and wishes to move back to [place]." The pt came to [place] to see if he could find an apartment and to see friends. Brenton states he has been caring for his dad for the past two years and would like CM assistance in placing his dad in an Assisted Living facility in [place]. Explained to Brenton the difficulties and limitations in helping with permanent housing. Asked son if he could fly to [place] to assist with medical decision making and placement - son refused, stating he could not take time off of work and didn't really know how to help. Explained pt's cognitive concerns, son continued to refuse - stating he "understood if the hospital had to discharge his dad to the streets, it would okay." CM offered to assist in getting pt from hospital to airport for a flight back to [place], son declined stating "he will just fly right back to [place]." Son refused to adjust travel dates on pt's airline ticket. Met with pt. Discussed situation. Pt clearly confused stating he "walked to the hospital." Pt claims he has a girlfriend named Jaki; phone number obtained. Call placed to Jaki. Per Jaki, she lives in an [address] at [address]. She and the pt are supposed to in three days. Jaki states her parents are coming in to town tomorrow to attend the wedding. CM asked Jaki to come to the hospital to assist with the pt. Jaki stated she has "no way to get to the hospital, but will come on Tuesday03/13/18 when her parents arrive." Update provided to Dr. Peterson and JI Ronquillo. Call placed to Renuka Nugent, CM Safety Technician. Pt placed on medical detainer due to cognitive incompetency. Call placed to [facility] - spoke with Kirby. Per Kirby, Jaki is a resident at [facility] and is cognitively incompetent as well. Per Kirby, the pt arrived at [facility] from [place] on 03/09/18 and was granted permission to spend one night at the facility with Jaki. On Tuesday03/10/18, the pt attempted to take Jaki out of the facility. Jaki's son and medical decision maker was contacted. Jaki's son requested [facility] call [place] police should pt return to [facility] to see Jaki. Update provided to Jess Dent, RN, SALO Williamson. Attempted to reach Brenton (pt's son) again for medical proxy. LVM, awaiting call back. Ethics consult requested. Discharge plan remains unclear. CM will continue to follow. Current Discharge Plan: To be determined Date Signed: 03/12/2018 06:37 PM Electronically Signed By:Daly Mendiola RN [facility] Progress Note Note Note Notes: ANDRA spoke with pt's friend Robbie Bella [phone] who has known him for many years. He was helpful in getting pt's daughter Arely Tong's phone # [phone]. She lives in [place]. Spoke with Arely who is agreeable to being pt's medical proxy. Also spoke with pt's son Brenton Cummings who is in agreement with this. Even though pt has lived with Brenton for the past 2 1/2 years, Brenton felt Arely was the better choice for proxy. Hospitalist informed and ethics consult was canceled. Proxy Decision Maker: The interested persons (Brenton Cummings and Arely Tong) collectively agreed that Arely Tong knows the patient and is more likely to be informed of the patient's wishes regarding treatment and should act as the patient's healthcare proxy. Arely Tong can be contacted by phone at [phone]. Persons contacted were pt's son Brenton Cummings [phone] and Arely Tong. Arely is arranging to come to [place] next week to assist in making arrangements for pt - she was supposed to be in [place] for a wedding 03/28 but is moving up the date. PT/OT lizzetteals were requested for a possible SNF d/c for a short term rehab stay although pt may not have a skillable need. 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 Pt earns approx $1931 a month, per son. He has some savings. Pt's son also mentioned pt has a friend in [place] (Alberto Alexandre) who lives near the [facility]. If pt is able to d/c independently, perhaps he could stay there until Arely arrives. Alberto is disabled living with his daughter so not sure how much assistance he could provide. This d/c plan is not likely to be in the pt's best interests. Pt continues on medical detainer until a suitable d/c plan is made. Date Signed: 03/13/2018 03:29 PM Electronically Signed By:TC Hodgson [facility] Progress Note CM Note CM Note Notes: Spoke with pt quer Arely ([phone]), from [place] she is trying to make phone calls to find a placement for pt at d/c. Arely states she is trying to find a flight to [place] within the next 5 days. Arely reports it is not an option for pt to d/c with Arely and reside with her and her in [place]. Arely states there are no friends in [place] capable of caring for pt or who pt can live with. The friend Alberto in [place] is not a good option as he not mentally all there and resides with relatives. Arely reports friend Robbie likely not a d/c option. To Renetta knowledge pt receives $1900/month in social security. Referral made to [facility]: Angelique [phone] spoke with pt son Dimitri and Arely. Angelique reports pt is minimally over the assets for Medicaid, he would need to spend down a little to be able to go to a Medicaid [place]. After assessing pt finances and talking to family Angelique advice is SNF d/c and Medicaid screening. Angelique can follow pt and continue to work with family at SNF, CM to update her on which SNF placement pt d/c to. Med [employer] contacted to assess pt for Medicaid/LTC Medicaid. Pt may qualify for SNF; several SNF referrals sent. Pt has no secondary insurance. CM to follow. Date Signed: 03/14/2018 02:29 PM Electronically Signed By:TC Gooden [facility] ANDRA Progress Note CM Note CM Note Notes: Arely reports she will fly in to [place] Tuesday. Arely requests CM be available for assistance with the conversation about SNF placement if pt is still here Tuesday because pt will get very angry. [facility], [facility] and [facility] SNFs need to complete on-site assessments. Referrals pending for [facility], [facility], [facility], [facility] and [facility]. Pt girlfriend Jaki resides at , CM will have to discuss with MV if it would be possible or even a good idea for them to be there together at since says Jaki's son/decision maker wants [employer] called if pt goes to again. CM will continue to follow. Date Signed: 03/14/2018 03:42 PM Electronically Signed By:TC Gooden [facility] ANDRA Progress Note ANDRA Crandall CM Note Notes: Beatrice from [facility] on site today to assess patient, able to accept. Spoke with patient's daughter, Arely, via phone re: discharge plan of care. She prefers that patient d/c to [facility] in [place]. All orders have been sent to [facility] to transport today at 1500. feels patient is medically stable for discharge today, daughter arriving on Tuesday but is okay with patient transferring today. D/W RN who will call report. Plan: D/C to [facility] today. Date Signed: 03/15/2018 02:04 PM Electronically Signed By:Renuka Nugent RN Case Management Discharge Plan Note Case Management Discharge Discharge Order Complete? Answers: Yes Patient to Obtain Answers: Other Notes: [facility] Medications Transportation Arranged Answers: Other Notes: [facility] - arrange d by Faxed Final Orders Answers: Yes Agency/Facility Transfer Answers: Yes Report Printed & Faxed to Receiving Agency Family Notified Answers: Yes Notes: LVM for daughter Discharge Comments Notes: Patient will d/c to [facility] today. Beatrice at arranged transport through [facility] for 1500. LVM for patient's daughter to notify of transport time. RN will call report to . Intervention Information Intervention Type:*ESTEVEZ-Signed Date of Service:03/12/2018 12:23 PM Patient Type:Observation Staff Member:TORRI Moe Michelle Hours: Discipline: Severity: Comment: Intervention Type:*IM-Signed Date of Service:03/15/2018 02:09 PM Patient Type:Inpatient Staff Member:Mandi Meyer Hours: Discipline: Severity: Comment:
--- NOTE | 2018-03-15 17:57 | GDS ---
[f rep st] DISCHARGE SUMMARY DISCHARGE DIAGNOSES: Include: 1. Acute encephalopathy. 2. Suspected underlying cognitive deficits. 3. B12 deficiency. 4. Acute dehydration. HISTORY OF PRESENT ILLNESS: This is a 72-year-old male who presents with acute encephalopathy. For details of patient's initial presentation, please see the history and physical dated 03/11/2018. CONSULTATIVE SERVICES: None. PROCEDURES: 03/11/2018, patient had a noncontrast CT of the head that shows no acute intracranial fi ndings. Atrophy is noted by Radiology. HOSPITAL COURSE: Acute encephalopathy. Patient underwent extensive workup for reversible causes of encephalopathy, all of which were negative. We are suspicious the patient has an underlying cognitiv e deficit that has likely been quite chronic. The patient was assessed by therapies and the safest d isposition was felt to be to senior living facility. He has been accepted by an outpatient facilit y today and will be transferred for ongoing care. His daughter has been established as his proxy dec ision maker and has been coordinating with all decisions related to the patient's care and dispositio n. MEDICATIONS AT TIME OF DISPOSITION: Please reference the medication reconciliation printed on 2017. FOLLOWUP APPOINTMENTS: Will be managed by his assisted primary care. PENDING STUDIES: At the time of this dictation are none. TIME SPENT: I spent greater than 30 minutes in the planning and coordination of this discharge. /[id number]/MODL
== END 2018-03-15 15:24 | DRG 71 ==
LOC: EDUNIT# → OBSVTOIN 01:24 → F3N 02:33
PROVIDERS: ADMIT Student in an Organized Health Care Education/Training Program; ATTEND Hospitalist
DX: G93.40 Encephalopathy, unspecified (principal); R41.9 Unspecified symptoms and signs involving cognitive functions and awareness; E87.2 Acidosis; R17 Unspecified jaundice; E53.8 Deficiency of other specified B group vitamins; E86.0 Dehydration; E83.52 Hypercalcemia; E11.65 Type 2 diabetes mellitus with hyperglycemia; Z97.0 Presence of artificial eye; Z79.4 Long term (current) use of insulin; Z59.0 Homelessness
CPT/HCPCS: 80305; 82607-90; 82652-90; 83921-90; 92507-GN; 92523-GN; 97116-GP; 97161-GP; 97165-GO; 97530-GP; 97535-GO; G0009; G0378; G0480; G8978-GP-CI; G8979-GP-CI; G8987-GO-CI; G8988-GO-CI; G8989-GO-CI; G9168-GN-CK; G9169-GN-CJ; J1630; J1650; J1815